=== PATIENT | female | born 1990 | race Hispanic/Latino ===

== ENCOUNTER 2017-12-11 11:54 | Emergency (ER) | payer OTHER ==
[2017-12-11 12:00] VITALS: BP 160/83; PULSE 80; RESP 16; TEMP 98.1; O2SAT 99
[2017-12-11] MEDS ORDERED: Oxycodone/Acetaminophen 5/325 mg Tab PO ONE (12:27)
[2017-12-11] MEDS ORDERED: Bacitracin 500 Units/gm Oint Foilpak UD TOP STA (12:27)
[2017-12-11] MEDS ORDERED: Tdap Vaccine 0.5 ml Vial (10-64 yrs) IM ONE ×2 (12:27→12:38)
[2017-12-11] MEDS ORDERED: Bacitracin 500 Units/gm Oint Foilpak UD ONE (12:34)
[2017-12-11] MEDS ORDERED: Oxycodone/Acetaminophen 5/325 mg Tab ONE (12:37)
--- NOTE | 2017-12-11 12:39 | ED PDOC ---
HPI: Trauma/Fall - HPI Time Seen by Provider: 12/11/17 12:13 Chief Complaint (Nursing): Trauma Chief Complaint (Provider): Trauma History Per: Patient History/Exam Limitations: no limitations Onset/Duration Of Symptoms: Mins Associated Symptoms: denies: Dizziness, LOC Additional Complaint(s): Barbara Lopes is a 27 year old female with no past medical history who is presenting to the ED for evaluation of mouth injury onset around 11 am today. Patient states that she was walking her dog and tripped over the leash. She adds that she did not have time to brace herself and fell forwards, striking her mouth against a pile of rocks. Patient reports that she knocked one of her front teeth completely out and the other one is dangling. She denies any loss of consciousness, dizziness, changes in vision, nausea, vomiting, extremity pain, neck pain, chest pain, or abdominal pain. Of note, patients significant other is at bedside and she is acting normally. Tetanus is not up to date. PMD: none provided Past Medical History Reviewed: Historical Data, Nursing Documentation, Vital Signs Vital Signs: Last Vital Signs Temp 98.1 F 12/11/17 11:57 Pulse 80 12/11/17 11:57 Resp 16 12/11/17 11:57 BP 160/83 H 12/11/17 11:57 Pulse Ox 99 12/11/17 11:57 - Medical History PMH: No Chronic Diseases - Surgical History Surgical History: No Surg Hx - Family History Family History: States: Unknown Family Hx - Social History Current smoker - smoking cessation education provided: No Alcohol: None Drugs: Denies - Allergies Allergies/Adverse Reactions: Allergies Allergy/AdvReac Type Severity Reaction Status Date / Time No Known Allergies Allergy Verified 12/11/17 12:00 Review of Systems ROS Statement: Except As Marked, All Systems Reviewed And Found Negative Eyes: Negative for: Vision Change ENT: Positive for: Other (dental injury, facial injury) Cardiovascular: Negative for: Chest Pain Gastrointestinal: Negative for: Nausea, Vomiting, Abdominal Pain Musculoskeletal: Negative for: Neck Pain, Arm Pain, Leg Pain Neurological: Negative for: Headache, Dizziness Physical Exam - Reviewed Nursing Documentation Reviewed: Yes Vital Signs Reviewed: Yes - Physical Exam Comments: GENERAL APPEARANCE: Patient is awake, alert, oriented x 3, in mild painful distress. SKIN: Warm, dry; (-) cyanosis. EYES: (-) conjunctival pallor, (-) scleral icterus. (+) PEERL, (+) EOMI. (-) periorbital tenderness, swelling, or erythema. ENMT: Mucous membranes moist. (-) Nasal bridge tenderness. (-) epistaxis. (+)superficial abrasions to chin and philtrum, (+) edema of upper lip and philtrum. Pharynx is clear with uvula midline. (-) exudates. TEETH: (+) left central incisor absent. (+) right central incisor dangling by posterior root. Reminder of dentition intact and non-tender. FACE: (-) Facial bone tenderness, (+) full ROM of mandible. Scalp: (-) tendern ess, (-) hematoma. NECK: (-) tenderness, (-) stiffness, (-) lymphadenopathy. CHEST AND RESPIRATORY: (-) rales, (-) rhonchi, (-) wheezes; breath sounds equal bilaterally. (-) stridor. HEART AND CARDIOVASCULAR: (-) irregularity; (-) murmur, (-) gallop. ABDOMEN AND GI: (-) distention. (-) tenderness. (-) guarding, (-) rebound, (-) palpable masses, (-) CVA tenderness. EXTREMITIES: (-) deformity, (-) edema, (+) distal pulses. NEURO AND PSYCH: Mental status as above; (-) focal findings. - ECG O2 Sat by Pulse Oximetry: 99 (RA) Pulse Ox Interpretation: Normal Medical Decision Making Medical Decision Making: Time: 12:27 Impression: Tooth injuries, Facial Contusion s/p fall Plan: --Adacel 0.5 ml IM --Wounds/abrasions irrigated with saline and Bacitracin applied --Percocet 1 tab PO 1330 Patient was able to arrange an appointment with dentist, Dr Dillon Denson ([phone]) at 2pm as Dr Nunes unreachable. On re-evaluation, patient reports improvement of symptoms. On exam, patient remains AAOx3, in no acute distress. Lungs clear to auscultation, cardiac RRR, repeat neuro exam shows no focal findings. Vitals stable. Lab/Diagnostic results d/w the patient in great detail. Diagnosis of fractured tooth, dental pain, facial contusion s/p fall d/w the patient. Based on history, exam and diagnostic results, plan will be for outpatient follow up with dental immediately upon discharge. Return to the emergency room at any time for any new or worsening symptoms. Patient states she fully agrees with and understands discharge instructions. States that she agrees with the plan and disposition. Verbalized and repeated discharge instructions and plan. I have given the patient opportunity to ask any additional questions. Scribe Attestation: Documented by Teresa Lujan, acting as a scribe for Audelia Mon PA-C. Provider Scribe Attestation: All medical record entries made by the Scribe were at my direction and personally dictated by me. I have reviewed the chart and agree that the record accurately reflects my personal performance of the history, physical exam, medical decision making, and the department course for this patient. I have also personally directed, reviewed, and agree with the discharge instructions and disposition. Disposition - Clinical Impression Clinical Impression: Tooth injury, Broken tooth with complication - Patient ED Disposition Is Patient to be Admitted: No Counseled Patient/Family Regarding: Studies Performed, Diagnosis, Need For Followup - Disposition Referrals: your, dentist [Other] Disposition: Routine/Home Disposition Time: 13:35 Condition: STABLE Additional Instructions: GO TO YOUR DENTIST IMMEDIATELY UPON DISCHARGE. The emergency medical care you received today was directed at your acute symptoms. If you were prescribed any medication, please fill it and take as directed. It may take several days for your symptoms to resolve. Return to the Emergency Department if your symptoms worsen, do not improve, or if you have any other problems. Please contact your doctor in 2 days for re-evaluation and follow up / or call one of the physicians/clinics you have been referred to that are listed on the Patient Visit Information form that is included in your discharge packet. Bring any paperwork you were given at discharge with you along with any medications you are taking to your follow up visit. Our treatment cannot replace ongoing medical care by a primary care provider (PCP) outside of the emergency department. Instructions: Fractured Tooth, Dental Pain (DC) Forms: [facility] (Albanian) Print Language: AUSTRIAN - POA Present On Arrival: Falls Or Trauma
== END 2017-12-11 13:37 | disposition home or self-care (01) ==
LOC: H.ER 11:54
DX: S00.83XA Contusion of other part of head, initial encounter (principal); S02.5XXA Fracture of tooth (traumatic), initial encounter for closed fracture; W19.XXXA Unspecified fall, initial encounter; Y92.480 Sidewalk as the place of occurrence of the external cause